=== PATIENT | male | born 1980 | race American Indian/Alaskan Native ===

== ENCOUNTER 2022-02-14 16:51 | Emergency (ER) | payer SELFPAY ==
[2022-02-14 19:06] VITALS: BP 136/78
[2022-02-14] MEDS ORDERED: oxyCODONE /ACETAMINOPHEN 5-325MG TAB PO ONE (22:57)
[2022-02-14] MEDS ORDERED: KETOROLAC 60 MG/2 ML INJ IM ONE (22:57)
--- NOTE | 2022-02-14 23:02 | Emergency Department Report ---
ED Extremity Problem HPI - General Chief complaint: Extremity Injury, Lower Stated complaint: GOUT FLARE UP Time Seen by Provider: 02/14/22 22:49 Source: patient Mode of arrival: Ambulatory Limitations: No Limitations - History of Present Illness Initial comments: 41-year-old male with a past medical history of gout with initial attack several years ago presents to the hospital complaining of gout attack to right foot for several days. Pain is 10/10 intensity, constant, worse with movement, ambulation, and palpation. No alleviating factors reported. Patient denies trauma or fever. Patient moved here 2 months ago but does not have a local PMD - Related Data Previous Rx's Medication Instructions Recorded Last Taken Type Colchicine 0.6 mg PO Q1HR #3 tab 02/14/22 Unknown Rx HYDROcodone/APAP 5-325 [[address] 1 each PO Q6HR PRN #20 tablet 02/14/22 Unknown Rx 5/325] Indomethacin 50 mg PO Q8H PRN #20 cap 02/14/22 Unknown Rx Allergies Allergy/AdvReac Type Severity Reaction Status Date / Time No Known Allergies Allergy Unverified 02/14/22 19:06 ED Review of Systems ROS: Stated complaint: GOUT FLARE UP Other details as noted in HPI Comment: All other systems reviewed and negative ED Past Medical Hx - Past Medical History Previous Medical History?: Yes Additional medical history: gout - Medications Home Medications: Home Medications Medication Instructions Recorded Confirmed Last Taken Type Colchicine 0.6 mg PO Q1HR #3 tab 02/14/22 Unknown Rx HYDROcodone/APAP 5-325 [[address] 1 each PO Q6HR PRN #20 tablet 02/14/22 Unknown Rx 5/325] Indomethacin 50 mg PO Q8H PRN #20 cap 02/14/22 Unknown Rx ED Physical Exam - General Limitations: No Limitations - Other Other exam information: General: No acute distress Head: Atraumatic Eyes: normal appearance ENT: Moist mucous membranes Neck: Normal appearance, no midline tenderness Chest: Clear to auscultation bilaterally CV: Regular rate and rhythm Abdomen: Soft, normal bowel sounds, nontender, nondistended, no rebound or guarding Back: Normal inspection Extremity: Right foot 2+ DP pulse. Mild warmth and swelling to the first MTP joint with tenderness. Limited movement secondary to pain. No erythema Neuro: Alert O x 3, no facial asymmetry, speech clear, no gross motor sensory deficit Psych: Appropriate behavior Skin: No rash ED Course Vital Signs 02/14/22 19:02 Temperature 98.3 F Pulse Rate 84 Respiratory 18 Rate Blood Pressure 136/78 [Left] O2 Sat by Pulse 99 Oximetry ED Medical Decision Making - Medical Decision Making 41-year-old male presents to the hospital with exacerbation of gout flare. Provided pain medicine in the ED. Will be discharged on colchicine, NSAID, and narcotics. Outpatient follow-up will be provided. Critical Care Time: No Critical care attestation.: If time is entered above; I have spent that time in minutes in the direct care of this critically ill patient, excluding procedure time. ED Disposition Clinical Impression: Gout flare Disposition: HOME / SELF CARE / HOMELESS Is pt being admited?: No Does the pt Need Aspirin: No Condition: Stable Instructions: Low-Purine Eating Plan Additional Instructions: Take the medication as prescribed. Follow-up with your doctor or doctor/clinic provided. Return if symptoms worsen as indicated by your discharge instructions. Prescriptions: Colchicine 0.6 mg PO Q1HR #3 tab Indomethacin 50 mg PO Q8H PRN #20 cap PRN Reason: Pain , Severe (7-10) HYDROcodone/APAP 5-325 [[address] 5/325] 1 each PO Q6HR PRN #20 tablet PRN Reason: Pain Referrals: BRYAN VILLARREAL MD [Staff Physician] - 3-5 Days [facility] [Provider Group] - 3-5 Days Forms: Work/School Release Form(ED) Time of Disposition: 23:22
== END 2022-02-14 23:51 | disposition home or self-care (01) ==
LOC: ED 16:51
DX: M10.9 Gout, unspecified (principal)
CPT/HCPCS: 96372; 99282; J1885